=== PATIENT | male | born 1980 | race Caucasian/White ===

== ENCOUNTER 2024-10-02 10:38 | Emergency (ER) | payer OTHER ==
[2024-10-02 11:02] VITALS: BP 126/75; PULSE 69; RESP 18; TEMP 98; BMI 30.7
[2024-10-02] MEDS ORDERED: ACETAMINOPHEN INJECTION 100 ML ONE (12:01)
[2024-10-02] MEDS ORDERED: AMOX TR/POT CLAV 875MG/125MG TABLETS (FP) ONE (12:02)
[2024-10-02 12:06] LABS: HEMATOCRIT 49.9 % (40.1-51.0); HEMOGLOBIN 16.8 g/dL (13.7-17.5); MCHC 33.7 g/dl (32.3-36.5); MEAN CELL VOLUME 84.6 fl (79.0-92.2); MEAN PLT VOLUME 9.5 fl (9.4-12.4); PLATELET COUNT 211 x10^3/uL (163-337); RDW 13.1 % (12.1-15.9)
[2024-10-02] MEDS: ACETAMINOPHEN 1000 MG/100 ML BAG IVPB ONE (12:08)
[2024-10-02] MEDS: AMOX TR/POT CLAV 875MG/125MG TABLETS (FP) PO ONE (12:09)
[2024-10-02 12:25] LABS: POTASSIUM 3.7 mmol/L (3.5-5.1)
[2024-10-02 12:28] LABS: ALBUMIN 4.1 g/dl (3.4-5.0); BLOOD UREA NITROGEN 11.7 mg/dL (7-18)
[2024-10-02 12:33] LABS: BILIRUBIN,TOTAL 0.8 mg/dL (0.2-1); TOT PROT 7.8 g/dl (6.4-8.2)
[2024-10-02] MEDS ORDERED: DALBAVANCIN HCL 500 MG VIAL (RESTRICTED TO ID ONLY) IVPB ONE (13:45)
[2024-10-02 13:54] LABS: HCV DIAGNOSTIC IN-HOUSE W/RFLX NON-REACTIVE (NONREACTIVE); HIV INTERPRETATION NEGATIVE (NEGATIVE)
[2024-10-02] MEDS: DALBAVANCIN HCL 1,500 MG in DEXTROSE 5%-WATER - 500 ML IVPB ONE (13:58)
[2024-10-02] MEDS: IBUPROFEN 600 MG TABLET (FP) PO ONE (14:32)
[2024-10-02] MEDS ORDERED: IBUPROFEN 600 MG TABLET (FP) PO ONE (14:33)
[2024-10-02] MEDS ORDERED: LIDOCAINE 1%/EPI 1:100000 (50 ML MULTI DOSE VIAL) NR ONE (17:16)
[2024-10-02] MEDS ORDERED: LIDOCAINE 1%/EPI 1:100000 (20 ML MULTI DOSE VIAL) ONE ×2 (17:22→17:48)
== END 2024-10-02 17:30 | disposition home or self-care (01) ==
LOC: JER 10:38
PROC: 3E03329 Introduction of Other Anti-infective into Peripheral Vein, Percutaneous Approach (ICD-10-PCS; principal; 2024-10-02)
PROC: 3E033NZ Introduction of Analgesics, Hypnotics, Sedatives into Peripheral Vein, Percutaneous Approach (ICD-10-PCS; 2024-10-02)
DX: L03.211 Cellulitis of face (principal); K13.0 Diseases of lips; R42 Dizziness and giddiness; R50.9 Fever, unspecified; H92.02 Otalgia, left ear; R61 Generalized hyperhidrosis; R13.10 Dysphagia, unspecified
CPT/HCPCS: 36415; 70487-TC; 80053; 85027; 86803; 87389; 96365; 96375; 99285-25; J0875; Q9967